=== PATIENT | female | born 1945 | race African-American/Black ===

== ENCOUNTER 2020-02-19 21:02 | Emergency (ER) | payer MEDICARE, MEDICAID ==
[~2020-02-19] VITALS: Ht 162.6 cm; Wt 141.0 kg
--- NOTE | 2020-02-19 21:21 | PHYS DOC ---
General Adult EDM: Chief Complaint: MECHANICAL FALL HPI: HPI: ".. I fall.. I hurt... My knee hurt..." " My left..." Patient is a 74 year old female who presents with above hx and complaints of Lt knee pain after a fall on transfer from commode to wheelchair. Patient localizes pain to left patella. Can do straight leg lift. Ligaments grossly stable. Has obvious some edema to patellar area. No other injuries reported. Patient recently transferred to hospice for end-stage renal disease- no longer receiving dialysis. Patient sent in from [facility]. Has extensive past medical history of anemia, hyperlipidemia, major depressive recurrent, diabetes, osteoarthritis, end-stage renal disease, hypertensive kidney disease stage V, chronic renal disease, A. fib, probably myalgia rheumatica and morbid obesity pt. normally follows with Dr. Hernandez Review of Systems: Review of Systems: Constitutional: Denies fever or chills Eyes: Denies change in visual acuity HENT: Denies nasal congestion or sore throat Respiratory: Denies cough or shortness of breath Cardiovascular: Denies chest pain or edema GI: Denies abdominal pain, nausea, vomiting, bloody stools or diarrhea : Denies dysuria Musculoskeletal: Complains of left knee pain after fall during transfer Integument: Denies rash Neurologic: Denies headache, focal weakness or sensory changes Endocrine: Denies polyuria or polydipsia Lymphatic: Denies swollen glands Psychiatric: Denies depression or anxiety Heart Score: Risk Factors: Risk Factors: DM, Current or recent (<one month) smoker, HTN, HLP, family history of CAD, obesity. Risk Scores: Score 0 - 3: 2.5% MACE over next 6 weeks - Discharge Home Score 4 - 6: 20.3% MACE over next 6 weeks - Admit for Clinical Observation Score 7 - 10: 72.7% MACE over next 6 weeks - Early Invasive Strategies Family History: Family History: Noncontributory to presentation Current Medications: Current Meds: Current Medications Medications (Trade) Dose Ordered Sig/Yuliana Start Time Stop Time Status Last Admin Dose Admin Morphine Sulfate (Morphine 10mg Syringe) 10 mg 1X ONCE 02/19/20 21:30 02/19/20 21:31 UNV Allergies: Allergies: Allergies Coded Allergies Type Severity Reaction Last Updated Verified No Known Drug Allergies 6/19/20 No Physical Exam: PE: Constitutional: Mild distress, non-toxic appearance. [] HENT: Normocephalic, atraumatic, bilateral external ears normal, oropharynx moist, no oral exudates, nose normal. [] Eyes: PERRLA, EOMI, conjunctiva normal, no discharge. [] Neck: Normal range of motion, no tenderness, supple, no stridor. More than 17 inches circumference Cardiovascular:Heart rate regular rhythm, no murmur [] PMI to the left Lungs & Thorax: Bilateral breath sounds equal apex with basilar crackles bilaterally on auscultation [] Abdomen: Bowel sounds normal, soft, no tenderness, no masses, no pulsatile masses. Obese. Old surgery scar. Skin: Warm, dry, no erythema, no rash. [] Back: No tenderness, no CVA tenderness. [] Extremities: Left knee-patella tenderness, no cyanosis, no clubbing, ROM intact, bilateral leg edema. No cording appreciated old graft sites bilateral Neurologic: Alert and oriented X 3, moves extremities on request has distal sensory, no gross focal deficits noted. [] Psychologic: Affect anxious, jmood slightly depressed. EKG: EKG: [] Radiology/Procedures: Radiology/Procedures: [place] [address] IMAGING REPORT Signed PATIENT: BEATA DOMINGO ACCOUNT: [id number] : 1945 LOCATION: ER AGE: 74 SEX: F EXAM STATUS: PRE ER ORD. PHYSICIAN: MANUEL ZAMAN MD REASON: fall, left leg/knee pain. PROCEDURE: TIBIA FIBULA LEFT TIBIA FIBULA LEFT, LEFT FEMUR XRAY History: Reason: fall, left leg/knee pain. / Spl. Instructions: / History: Technique: 2 views left femur and 2 views left tibia and fibula Comparison: None. Findings: Normal alignment of the left hip. Small knee joint effusion. Moderate knee degenerative changes most prominent within the lateral and patellofemoral compartment. Vascular calcifications. Partially soft tissue swelling. No acute fracture. Mild ankle DJD. Small plantar calcaneal spur. Dystrophic ossifications within the lower leg soft tissues. Impression: 1. No acute osseous abnormality. 2. Moderate knee DJD. 3. Small knee joint effusion. Electronically signed by: Phillip Tijerina DO (02/19/2020 10:28 PM) [facility] DICTATED AND SIGNED BY: PHILLIP TIJERINA DO DATE: 02/19/202227 CC: MANUEL ZAMAN MD ~ [][address] [id number] IMAGING REPORT Signed PATIENT: BEATA DOMINGO ACCOUNT: [id number] : 1945 LOCATION: ER AGE: 74 SEX: F EXAM STATUS: PRE ER ORD. PHYSICIAN: MANUEL ZAMAN MD REASON: fall, left leg/knee pain. PROCEDURE: LEFT FEMUR XRAY TIBIA FIBULA LEFT, LEFT FEMUR XRAY History: Reason: fall, left leg/knee pain. / Spl. Instructions: / History: Technique: 2 views left femur and 2 views left tibia and fibula Comparison: None. Findings: Normal alignment of the left hip. Small knee joint effusion. Moderate knee degenerative changes most prominent within the lateral and patellofemoral compartment. Vascular calcifications. Partially soft tissue swelling. No acute fracture. Mild ankle DJD. Small plantar calcaneal spur. Dystrophic ossifications within the lower leg soft tissues. Impression: 1. No acute osseous abnormality. 2. Moderate knee DJD. 3. Small knee joint effusion. Electronically signed by: Phillip Tijreina DO (02/19/2020 10:28 PM) [facility] DICTATED AND SIGNED BY: PHILLIP TIJERINA DO DATE: 02/19/202227 CC: MANUEL ZAMAN MD ~ Course & Med Decision Making: Course & Med Decision Making Pertinent Labs and Imaging studies reviewed. (See chart for details) Patient had Tylenol for pain. Use current ordered pain meds for discomfort. Antwan wrap placed.. Return if any concerns. Distal neurovascular intact after application of Antwan wrap. Use ice packs as needed. Follow-up with primary. Impression: 1. Fall on Transfer 2. Lt. Patellar contusion 3. End Stage Renal- on Hospice 4. Morbid Obesity 5. Multiple Medical Issues [] Dragon Disclaimer: Karmen Disclaimer: This electronic medical record was generated, in whole or in part, using a voice recognition dictation system. Departure Departure: Disposition: 01 HOME/RESIDENCE PRIOR TO ADM Condition: STABLE Justification of Admission: Justification of Admission: Justification of Admission Dx: N/A Dragon Disclaimer This chart was dictated in whole or in part using Voice Recognition software in a busy, high-work load, and often noisy Emergency Department environment. It may contain unintended and wholly unrecognized errors or omissions. Dragon Disclaimer This chart was dictated in whole or in part using Voice Recognition software in a busy, high-work load, and often noisy Emergency Department environment. It may contain unintended and wholly unrecognized errors or omissions. MANUEL ZAMAN MD Feb 19, 2020 21:21
[2020-02-19] MEDS ORDERED: MORPHINE SULFATE 10 MG/ML SYRINGE. SQ ONE (21:30)
--- NOTE | 2020-02-19 22:31 | RAD ---
TIBIA FIBULA LEFT, LEFT FEMUR XRAY History: Reason: fall, left leg/knee pain. / Spl. Instructions: / History: Technique: 2 views left femur and 2 views left tibia and fibula Comparison: None. Findings: Normal alignment of the left hip. Small knee joint effusion. Moderate knee degenerative changes most prominent within the lateral and patellofemoral compartment. Vascular calcifications. Partially soft tissue swelling. No acute fracture. Mild ankle DJD. Small plantar calcaneal spur. Dystrophic ossifications within the lower leg soft tissues. Impression: 1. No acute osseous abnormality. 2. Moderate knee DJD. 3. Small knee joint effusion. Electronically signed by: Phillip Tijerina DO (02/19/2020 10:28 PM) [facility]
[2020-02-19 23:30] VITALS: BP 116/76
== END 2020-02-20 00:56 | disposition home or self-care (01) ==
LOC: ER 21:02
DX: S80.02XA Contusion of left knee, initial encounter (principal); E66.01 Morbid (severe) obesity due to excess calories; I12.0 Hypertensive chronic kidney disease with stage 5 chronic kidney disease or end stage renal disease; E11.22 Type 2 diabetes mellitus with diabetic chronic kidney disease; N18.6 End stage renal disease; M19.90 Unspecified osteoarthritis, unspecified site; M25.462 Effusion, left knee; F32.9 Major depressive disorder, single episode, unspecified; E03.9 Hypothyroidism, unspecified; I48.91 Unspecified atrial fibrillation; Z68.43 Body mass index [BMI] 50.0-59.9, adult; Z86.2 Personal history of diseases of the blood and blood-forming organs and certain disorders involving the immune mechanism; W18.39XA Other fall on same level, initial encounter; Y93.89 Activity, other specified; Y92.89 Other specified places as the place of occurrence of the external cause; Y99.8 Other external cause status
CPT/HCPCS: 73552; 73590; 96372; 99285; J2270